=== PATIENT | male | born 1965 | race American Indian/Alaskan Native ===

== ENCOUNTER 2018-04-12 11:22 | Emergency (ER) | payer SELFPAY ==
[2018-04-12 11:55] VITALS: BP 128/95
[2018-04-12] MEDS ORDERED: SOLU-Medrol IM ONE (14:26)
[2018-04-12] MEDS ORDERED: TORADOL IM ONE (14:26)
[2018-04-12] MEDS ORDERED: ULTRAM PO ONE (14:26)
--- NOTE | 2018-04-12 14:38 | Emergency Department Report ---
ED General Adult HPI - General Chief complaint: Neck Pain/Injury Stated complaint: NECK/LT HAND PAIN Time Seen by Provider: 04/12/18 14:09 Source: patient Mode of arrival: Ambulatory Limitations: No Limitations - History of Present Illness Initial comments: Patient presents to emergency department with chief complaint of neck pain radiating into his left abdomen. 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 Patient states that times the pain shoots down his arms and hands become numb. Patient denies chest pain, shortness of breath, abdominal pain. -: Sudden Location: neck, upper extremity Radiation: other (into left arm) Severity scale (0 -10): 7 Quality: aching, sharp Consistency: constant Improves with: none, rest Worsens with: movement Associated Symptoms: denies other symptoms Treatments Prior to Arrival: none - Related Data Previous Rx's Medication Instructions Recorded Last Taken Type ALBUTEROL Inhaler(NF) [VENTOLIN 2 puff IH Q4HR PRN #1 inha 04/12/18 Unknown Rx Inhaler(NF)] Ibuprofen [Motrin] 800 mg PO Q8HR PRN #30 tablet 04/12/18 Unknown Rx Tramadol HCl [Ultram] 50 mg PO Q6HR PRN #24 tablet 04/12/18 Unknown Rx guaiFENesin/CODEINE [Robitussin AC] 5 ml PO BID PRN #180 oral.liqd 04/12/18 Unknown Rx levoFLOXacin [Levaquin] 750 mg PO QDAY #5 tablet 04/12/18 Unknown Rx predniSONE [Deltasone] 20 mg PO QDAY #15 tab 04/12/18 Unknown Rx Allergies Allergy/AdvReac Type Severity Reaction Status Date / Time No Known Allergies Allergy Verified 04/12/18 11:51 ED Review of Systems ROS: Stated complaint: NECK/LT HAND PAIN Other details as noted in HPI Comment: All other systems reviewed and negative Constitutional: denies: chills, fever Eyes: denies: eye pain, eye discharge, vision change ENT: denies: ear pain, throat pain Respiratory: cough. denies: shortness of breath, wheezing Cardiovascular: denies: chest pain, palpitations Endocrine: no symptoms reported Gastrointestinal: denies: abdominal pain, nausea, diarrhea Genitourinary: denies: urgency, dysuria Musculoskeletal: other (neck pain). denies: back pain, joint swelling, arthralgia Skin: denies: rash, lesions Neurological: denies: headache, weakness, paresthesias Psychiatric: denies: anxiety, depression Hematological/Lymphatic: denies: easy bleeding, easy bruising ED Past Medical Hx - Past Medical History Previous Medical History?: Yes Additional medical history: atrial septal defect, heart murmur - Surgical History Past Surgical History?: No - Social History Smoking Status: Current Every Day Smoker Substance Use Type: Alcohol - Medications Home Medications: Home Medications Medication Instructions Recorded Confirmed Last Taken Type ALBUTEROL Inhaler(NF) [VENTOLIN 2 puff IH Q4HR PRN #1 inha 04/12/18 Unknown Rx Inhaler(NF)] Ibuprofen [Motrin] 800 mg PO Q8HR PRN #30 tablet 04/12/18 Unknown Rx Tramadol HCl [Ultram] 50 mg PO Q6HR PRN #24 tablet 04/12/18 Unknown Rx guaiFENesin/CODEINE [Robitussin AC] 5 ml PO BID PRN #180 oral.liqd 04/12/18 Unk nown Rx levoFLOXacin [Levaquin] 750 mg PO QDAY #5 tablet 04/12/18 Unknown Rx predniSONE [Deltasone] 20 mg PO QDAY #15 tab 04/12/18 Unknown Rx ED Physical Exam - General Limitations: No Limitations General appearance: alert, in no apparent distress - Head Head exam: Present: atraumatic, normocephalic - Eye Eye exam: Present: normal appearance, PERRL, EOMI - ENT ENT exam: Present: mucous membranes moist - Neck Neck exam: Present: other (tapping of midline cspine recreates sx) - Respiratory Respiratory exam: Present: normal lung sounds bilaterally, rhonchi. Absent: respiratory distress, wheezes - Cardiovascular Cardiovascular Exam: Present: regular rate, normal rhythm. Absent: systolic murmur, diastolic murmur, rubs, gallop - GI/Abdominal GI/Abdominal exam: Present: soft, normal bowel sounds. Absent: distended, tend erness - Rectal Rectal exam: Present: deferred - Extremities Exam Extremities exam: Present: normal inspection - Back Exam Back exam: Present: normal inspection - Neurological Exam Neurological exam: Present: alert, oriented X3, CN II-XII intact. Absent: motor sensory deficit - Psychiatric Psychiatric exam: Present: normal affect, normal mood - Skin Skin exam: Present: warm, dry, intact, normal color. Absent: rash ED Course Vital Signs 04/12/18 11:51 Temperature 97.8 F Pulse Rate 71 Respiratory 18 Rate Blood Pressure 128/95 O2 Sat by Pulse 98 Oximetry ED Medical Decision Making - Medical Decision Making Discussed plan of care with patient Critical care attestation.: If time is entered above; I have spent that time in minutes in the direct care of this critically ill patient, excluding procedure time. ED Disposition Clinical Impression: Cervical radiculopathy, Bronchitis Disposition: TO HOME OR SELFCARE Is pt being admited?: No Does the pt Need Aspirin: No Condition: Stable Instructions: Cervical Radiculopathy (ED), Chronic Bronchitis (ED) Additional Instructions: return if worse Prescriptions: ALBUTEROL Inhaler(NF) [VENTOLIN Inhaler(NF)] 2 puff IH Q4HR PRN #1 inha PRN Reason: Shortness Of Breath guaiFENesin/CODEINE [Robitussin AC] 5 ml PO BID PRN #180 oral.liqd PRN Reason: Cough Ibuprofen [Motrin] 800 mg PO Q8HR PRN #30 tablet PRN Reason: pain levoFLOXacin [Levaquin] 750 mg PO QDAY #5 tablet predniSONE [Deltasone] 20 mg PO QDAY #15 tab Tramadol HCl [Ultram] 50 mg PO Q6HR PRN #24 tablet PRN Reason: pain Referrals: [facility] [place] [Outside] - 3-5 Days [facility] [Provider Group] - 3-5 Days [facility] [Provider Group] - 3-5 Days Forms: Work/School Release Form(ED) Time of Disposition: 14:34
== END 2018-04-12 15:16 | disposition home or self-care (01) ==
LOC: ED 11:22
DX: M54.12 Radiculopathy, cervical region (principal); J40 Bronchitis, not specified as acute or chronic; F17.200 Nicotine dependence, unspecified, uncomplicated
CPT/HCPCS: 96372; 99282; J1885; J2930

== ENCOUNTER 2020-11-16 12:34 | Emergency (ER) | payer OTHER ==
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
[2020-11-16 15:03] VITALS: BP 133/88
== END 2020-11-16 15:37 | disposition home or self-care (01) ==
LOC: ED 12:34
DX: S83.92XA Sprain of unspecified site of left knee, initial encounter (principal); M25.462 Effusion, left knee; R03.0 Elevated blood-pressure reading, without diagnosis of hypertension; Q21.1 Atrial septal defect; R01.1 Cardiac murmur, unspecified; W19.XXXA Unspecified fall, initial encounter; Y93.89 Activity, other specified; Y92.89 Other specified places as the place of occurrence of the external cause; Y99.8 Other external cause status
CPT/HCPCS: 99283